=== PATIENT | female | born 1995 | race Two or more races ===

== ENCOUNTER 2025-01-21 06:32 | Emergency (ER) | payer OTHER, SELFPAY ==
[2025-01-21 06:33] VITALS: BMI 31.3
[2025-01-21 06:42] VITALS: BP 109/75; PULSE 71; RESP 16; TEMP 36.7; O2SAT 97
--- NOTE | 2025-01-21 07:02 | PD.EDABDPN ---
ED Abdominal Pain RME/HPI General Chief Complaint: Abdominal Pain Stated complaint: ABDOMINAL BLOATING/CRAMPING Time seen by provider: 01/21/25 06:35 Arrival date/time: 01/21/25 06:32 This is a 29-year-old female that comes in with complaints of abdominal cramping and bloating for the past 2 weeks. Patient denies any bowel changes. Patient reports regular bowel movements. Patient states that she was diagnosed with a UTI couple weeks ago and was treated. Patient denies any vaginal pain vaginal discharge. Patient does have a IUD in place. Patient denies nausea vomiting diarrhea fever. Patient stated that her stool looked mucousy yesterday. Related Data Allergies Allergy/AdvReac Type Severity Reaction Status Date / Time No Known Allergies Allergy Verified 01/21/25 06:35 Review of Systems Review of Systems Systems Reviewed: All systems reviewed, normal except as documented Past Medical History Past Medical History Comments PMH COMMENT: Denies PMH ED Exam Narrative Physical exam: VITAL SIGNS: Reviewed. GENERAL APPEARANCE: Alert and interactive, follows commands, no acute distress, HEAD AND FACE: Non-traumatic. ENT: PERRL, conjuctiva pink and clear, eyelid no trauma, Mucous membrane moist. NECK: Supple, nontender, no nuchal rigidity. CHEST: No tenderness, no crepitus, no paradoxical movement, no retractions. LUNGS: Clear, well ventilated, symmetric, no rales, no wheezing, no rhonchi, no stridor, good breath sounds bilaterally. HEART: Regular rate, regular rhythm, no murmur, no gallops. ABDOMEN: Soft, nondistended, no guarding, nontender to light palpation NEUROLOGICAL: Gross motor function intact sensory function intact, Appropriate for age. MUSCULOSKELETAL: low back nontender, full range of motion. EXTREMITIES: No redness no swelling no skin breakdown on bilateral foot and leg. Distal neurovascular status intact bilateral foot SKIN: Color pink, dry, no rash, no lacerations, no abrasions, no contusions. Course Quality Measures none Orders Category Date Time Status HCG Qualitative,Urine Stat Lab 01/21/25 07:08 Completed Urinalysis, C/S if Indicated Stat Lab 01/21/25 07:08 Completed Acetaminophen Tab [Tylenol ES Tab] Med 01/21/25 08:37 Discontinued 1,000 mg PO X1 ONE Ibuprofen Tab [Motrin Tab] Med 01/21/25 08:37 Discontinued 800 mg PO X1 ONE Ondansetron Odt [Zofran Odt] Med 01/21/25 08:37 Discontinued 4 mg PO X1 ONE Vital Signs Vital signs: Vital Signs Temperature 98.1 F 01/21/25 06:42 Pulse Rate 71 01/21/25 06:42 Respiratory Rate 16 01/21/25 06:42 Blood Pressure 109/75 01/21/25 06:42 Pulse Oximetry (%) 97 01/21/25 06:42 Oxygen Delivery Method Room Air 01/21/25 06:42 Abdominal Pain MDM MDM Narrative MDM Narrative:: Spoke to patient at length. Patient states she is having on and off abdominal cramping and also her breasts feel tender. Patient thinks she is about to get her menstrual cycle. Patient having no pelvic pain to palpation. Patient's urine did not show UTI but did have some RBCs in there. I told patient to get this rechecked. Patient was given Tylenol and Zofran. Patient told to follow-up with primary provider in 1 to 2 days. Come back to the emergency room if symptoms change or worsen. Patient data External records reviewed:: [facility] previous records Clinical information provided by:: patient Social determinants that could affect healthcare access:: none Patient has the following chronic illnesses:: noen How is presenting disease/condition affected by chronic disease/condition?: no chronic disease Evaluation data The following diagnostics were reviewed and interpreted by me:: lab results Lab and/or radiology exams considered but not ordered:: none Interpretation Summary: see note Medications / Prescriptions Medications or Prescriptions considered but not ordered:: none Medication administrations:: Medication Administration History Discontinued Medications Acetaminophen (Acetaminophen 500 Mg Tablet) 1,000 mg PO X1 ONE Stop: 01/21/25 08:38 Last Admin: 01/21/25 09:06 Dose: 1,000 mg Documented By: EPI Ibuprofen (Ibuprofen Tab 400 Mg Tablet) 800 mg PO X1 ONE Stop: 01/21/25 08:38 Last Admin: 01/21/25 09:06 Dose: Not Given Documented By: EPI Non-Admin Reason: Patient Refused Ondansetron HCl (Ondansetron Odt 4 Mg Tabrap) 4 mg PO X1 ONE; Protocol Stop: 01/21/25 08:38 Last Admin: 01/21/25 09:06 Dose: 4 mg Documented By: EPI s Consultations Consultation(s) initiated? (list below): No Diagnosis Differential diagnosis abdominal pain: abdominal pain, acute appendicitis, calculus of kidney, constipation and other (menstral cramping ) Most likely diagnosis given after review of the tests above:: abdominal cramping Admission Indicated Admission indicated?: not indicated Admission Request Was there a request for admission?: No Disposition Plan Disposition Plan: Discharge Discharge Attestation Discharge Attestation: The patient and all family members were given an opportunity to ask questions and understood the discharge instructions. Discharge instructions specifically effects, indications for sooner follow up or return to the emergency department, and the expected course of current diagnosis. Patient condition: Stable Discharge Plan Plan Patient Disposition: HOME (Self Care) Patient condition on transfer: Stable Prescriptions/Referrals Referrals: No Primary/Family,Physician [Primary Care Provider] - In 1 week Problem List Clinical Impression: Abdominal cramping Patient/Caregiver Discharge Instructions Discharge Activity: activity as tolerated Education Materials: ED Abdominal Pain Unkn Cause Fem Additional Instructions: Follow up with primary provider in 1-2 days. Come back to ED if symptoms change or worsen Print Language: Khmer Stand Alone Forms: Juanita Award Info., Patient Portal Info Letter PA/STUDENT SUPPORT ADVISOR Supervising Physician PA/STUDENT SUPPORT ADVISOR Supervising Physician: [email or web address]
[2025-01-21 07:19] LABS: Collection Type, Urine Voided; WBC,Urine 0 /hpf (0-5)
[2025-01-21 07:36] LABS: Bilirubin,Urine Negative (Negative); Blood,Urine 2+ (Negative); Clarity,Urine Clear (Clear/Hazy); Color,Urine Yellow (Lt Yel-Yel); Culture Indicated,Urine Not Indicated; Glucose, Urine Negative (Negative); Ketones,Urine Negative (Negative); Leukocyte Esterase,Urine Negative (Negative); Nitrite,Urine Negative (Negative); PH,Urine 6.0 (5.0-7.0); Protein,Urine Trace (Neg - Trace); RBC,Urine 4 /hpf (0-3); Specific Gravity,Urine 1.038 (1.001-1.035); Squamous Epithelial Cell,Urine 2 /hpf (0-5); Urobilinogen,Urine Negative mg/dL (0.0-1.0)
[2025-01-21 07:37] LABS: HCG Qualitative,Urine Negative
[2025-01-21] MEDS: ONDANSETRON ODT 4 MG TABRAP PO (09:06)
[2025-01-21] MEDS: ACETAMINOPHEN 500 MG TABLET 1000 MG PO (09:06)
== END 2025-01-21 09:27 | disposition home or self-care (01) ==
PROVIDERS: Nurse Practitioner Family; Emergency Provider Family Medicine
DX: R10.9 Unspecified abdominal pain (principal); Z97.5 Presence of (intrauterine) contraceptive device
CPT/HCPCS: 81001; 81025; 99283; Q0162; A9270